=== PATIENT | female | born 1950 | race Caucasian/White ===

== ENCOUNTER 2017-10-28 10:32 | Emergency (ER) | payer BC, MEDICARE ==
[2017-10-28 10:47] VITALS: BP 139/72
--- NOTE | 2017-10-28 11:56 | UC ---
Throat Pain/Nasal Kostas HPI - HPI Summary HPI Summary: 67-year-old female presents with 3 day history of nasal congestion, yellow nasal drainage, maxillary sinus pressure, bilateral ear fullness and pain, sore throat, and a nonproductive cough. She does have history of sick contact with a friend with similar symptoms. Denies fever, chest pain, shortness of breath, abdominal pain, nausea, or vomiting. - History of Current Complaint Chief Complaint: UCGeneralIllness Stated Complaint: SORE THROAT Time Seen by Provider: 10/28/17 11:33 Hx Obtained From: Patient Onset/Duration: Gradual Onset, Lasting Days - 3 Severity: Mild Pain Intensity: 4 Cough: Nonproductive Associated Signs & Symptoms: Positive: Sinus Discomfort, Nasal Discharge. Negative: Dysphagia, Hoarseness, Fever, Vomiting, Rash - Allergies/Home Medications Allergies/Adverse Reactions: Allergies Allergy/AdvReac Type Severity Reaction Status Date / Time No Known Allergies Allergy Verified 10/28/17 10:37 Home Medications: Home Medications Ibuprofen TAB* [Motrin TAB* 400 MG] 400 mg PO Q6H PRN 10/28/17 [History Confirmed 10/28/17] Loratadine [Allergy Relief] 10 mg PO DAILY 10/28/17 [History Confirmed 10/28/17] Multivitamin [Multivitamins] 1 cap PO DAILY 10/28/17 [History Confirmed 10/28/17 ] PMH/Surg Hx/FS Hx/Imm Hx Previously Healthy: Yes - Denies significant PMH - Surgical History Surgical History: Yes Surgery Procedure, Year, and Place: oopherectomy 2008. partial L lobectomy 2008. L breast lumpectomy 2011. benign tumor removed 1970 - Family History Family History: Noncontributory - Social History Occupation: Retired Lives: With Family Alcohol Use: Occasionally Substance Use Type: None Smoking Status (MU): Never Smoked Tobacco Review of Systems Constitutional: Negative Skin: Negative Eyes: Negative ENT: Sore Throat, Ear Ache, Nasal Discharge, Sinus Congestion, Sinus Pain/ Tenderness Respiratory: Cough Cardiovascular: Negative Gastrointestinal: Negative Is Patient Immunocompromised?: No All Other Systems Reviewed And Are Negative: Yes Physical Exam Triage Information Reviewed: Yes Appearance: No Pain Distress, Well-Nourished Vital Signs: Initial Vital Signs Temp 98.2 F 10/28/17 10:40 Pulse 72 10/28/17 10:40 Resp 18 10/28/17 10:40 BP 139/72 10/28/17 10:40 Pulse Ox 100 10/28/17 10:40 Vital Signs Reviewed: Yes Eyes: Positive: Conjunctiva Clear. Negative: Discharge ENT: Positive: Pharyngeal erythema - Mild with post-nasal drip, Nasal congestion , Nasal drainage - Yellow, TM dull - Left, TM red - Left with effusion, Sinus tenderness - Maxillary, Uvula midline. Negative: Tonsillar swelling, Tonsillar exudate Neck: Positive: Supple, Nontender, Enlarged Nodes @ - single right anterior cervical Respiratory: Positive: Lungs clear, Normal breath sounds, No respiratory distress Cardiovascular: Positive: RRR, No Murmur Neurological: Positive: Alert Skin Exam: Normal Diagnostics - Laboratory Diagnostic Studies Completed/Ordered: Rapid strep negative Throat Pain/Nasal Course/Dx - Course Course Of Treatment: 67-year-old female with 3 day history of nasal congestion, yellow nasal drainage, maxillary sinus pressure, bilateral ear fullness and pain , sore throat, and a nonproductive cough. Exam revealed nasal congestion with maxillary sinus tenderness, erythematous pharynx with anterior cervical lymphadenopathy, and a erythematous dull left TM. Will treat with Augmentin 875 mg BID x 10 days for acute maxillary sinusitis and a left otitis media, fluticasone nasal spray, and saline rinses. She was provided with the [facility] physician referral number for assistance with establishing with PCP. - Differential Dx/Diagnosis Differential Diagnosis/HQI/PQRI: Otitis Media, Pharyngitis, Sinusitis Provider Diagnoses: Acute maxillary sinusitis, Left otitis media Discharge - Sign-Out/Discharge Documenting (check all that apply): Patient Departure All imaging exams completed and their final reports reviewed: No Studies - Discharge Plan Condition: Stable Disposition: HOME Prescriptions: Amoxicillin/Clavulanate TAB* [Augmentin TAB 875*] 875 mg PO BID #20 tab Fluticasone NASAL SPRAY 50MCG* [Flonase NASAL SPRAY 50MCG*] 2 spray BOTH NARES DAILY #1 btl Patient Education Materials: Sinusitis (ED), Ear Infection (ED) Referrals: No Primary Care Phys,NOPCP [Primary Care Provider] - [facility] PHYSICIAN REFERRAL [Outside] Additional Instructions: Start Augmentin 1 tablet every 12 hours for 10 days. Be sure to complete the entire prescription even if you're feeling better. Use a saline rinse such as Netti pot or NeilMed twice daily to help thin secretions and promote drainage. Use fluticasone (Flonase) 2 sprays each nostril once daily. Continue using acetaminophen (Tylenol) or ibuprofen (Advil, Motrin) as needed for pain. Use salt water rinses several times a day to help with the sore throat. Your blood pressure in the clinic today was mildly elevated. It is recommended that you establish with a primary care provider to have this rechecked. I have provided you with the number for the [facility] to help you arrange for follow up. - Billing Disposition and Condition Condition: STABLE Disposition: Home - Attestation Statements Provider Attestation: I was available for consult. This patient was seen by the [facility]. The patient was not presented to, seen by, or examined by me. -Perri
== END 2017-10-28 12:05 | disposition home or self-care (01) ==
LOC: UCEAST 10:32
DX: J01.00 Acute maxillary sinusitis, unspecified (principal); H66.92 Otitis media, unspecified, left ear
CPT/HCPCS: 87651; 99202; G0463

== ENCOUNTER 2017-12-27 11:39 | Emergency (ER) | payer MEDICARE, BC ==
--- NOTE | 2017-12-27 11:55 | ED ---
Abdominal Pain/Female - HPI Summary HPI Summary: The pt is a 67 y/o female presenting [place] [facility] c/o gradual onset LLQ abdominal pain since two days ago worsened today morning after breakfast. The sharp waxing and waning pain is rated 6/10 in severity. She notes nausea and vomiting but denies CP, dizziness, and dysuria. She called her PCP and is waiting for the return call. 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 Home Medications Medication Instructions Recorded Confirmed Type Amoxicillin/Clavulanate TAB* 875 mg PO BID #20 tab 10/28/17 Rx [Augmentin TAB 875*] Fluticasone NASAL SPRAY 50MCG* 2 spray BOTH NARES DAILY #1 btl 10/28/17 Rx [Flonase NASAL SPRAY 50MCG*] Ibuprofen TAB* [Motrin TAB* 400 MG] 400 mg PO Q6H PRN 10/28/17 10/28/17 History Loratadine [Allergy Relief] 10 mg PO DAILY 10/28/17 10/28/17 History Multivitamin [Multivitamins] 1 cap PO DAILY 10/28/17 10/28/17 History - History of Current Complaint Chief Complaint: EDAbdPain Stated Complaint: ABD PAIN Time Seen by Provider: 12/27/17 11:45 Hx Obtained From: Patient Hx Last Menstrual Period: Menopause Onset/Duration: Gradual Onset, Lasting Days - 2 days, Still Present, Worse Since - Today morning Timing: Intermittent Episode Lasting Severity Currently: Moderate Pain Intensity: 7 Pain Scale Used: 0-10 Numeric Location: Discrete At: LLQ Aggravating Factor(s): Nothing Alleviating Factor(s): Nothing Associated Signs and Symptoms: Positive: Nausea, Vomiting Allergies/Adverse Reactions: Allergies Allergy/AdvReac Type Severity Reaction Status Date / Time No Known Allergies Allergy Verified 10/28/17 10:37 PMH/Surg Hx/FS Hx/Imm Hx Previously Healthy: No Endocrine/Hematology History: Denies: Hx Diabetes Cardiovascular History: Denies: Hx Hypertension Respiratory History: Denies: Hx Asthma - Cancer History Cancer Type, Location and Year: None - Surgical History Surgery Procedure, Year, and Place: oopherectomy 2008. partial L lobectomy 2008. L breast lumpectomy 2011. benign tumor removed 1970 Infectious Disease History: No Infectious Disease History: Denies: Traveled Outside the [place] in Last 30 Days - Family History Family History: Noncontributory - Social History Occupation: Retired Lives: With Family Alcohol Use: Occasionally Substance Use Type: Reports: None Smoking Status (MU): Never Smoked Tobacco Review of Systems Constitutional: Negative - Dizziness Negative: Chest Pain Positive: Abdominal Pain - LLQ , Vomiting, Nausea Negative: dysuria All Other Systems Reviewed And Are Negative: Yes Physical Exam - Summary Physical Exam Summary: Appearance: The patient is well-nourished in no acute respiratory distress and in no acute pain. Skin: The skin is warm and dry and skin color reflects adequate perfusion. HEENT: The head is normocephalic and atraumatic. The pupils are equal and reactive. The conjunctivae are clear and without drainage. Nares are patent and without drainage. Mouth reveals moist mucous membranes and the throat is without erythema and exudate. The external ears are intact. The ear canals are patent and without drainage. The tympanic membranes are intact. Neck: The neck is supple with full range of motion and non-tender. There are no carotid bruits. There is no neck vein distension. Respiratory: Chest is non-tender. Lungs are clear to auscultation and breath sounds are symmetrical and equal. Cardiovascular: Heart is regular rate and rhythm. There is no murmur or rub auscultated. There is no peripheral edema and pulses are symmetrical and equal. Abdomen: The abdomen is soft and mildly tender in the LLQ. Left CVA tenderness noted. There are normal bowel sounds heard in all four quadrants and there is no organomegaly palpated. Musculoskeletal: There is no back tenderness noted. Extremities are non-tender with full range of motion. There is good capillary refill. There is no peripheral edema or calf tenderness elicited. Neurological: Patient is alert and oriented to person, place and time. The patient has symmetrical motor strength in all four extremities. Cranial nerves are grossly intact. Deep tendon reflexes are symmetrical and equal in all four extremities. Psychiatric: The patient has an appropriate affect and does not exhibit any anxiety or depression. Triage Information Reviewed: Yes Vital Signs On Initial Exam: Initial Vitals Temp Pulse Resp BP Pulse Ox 96.8 F 69 18 149/74 100 12/27/17 11:42 12/27/17 11:42 12/27/17 11:42 12/27/17 11:42 12/27/17 11:42 Vital Signs Reviewed: Yes Diagnostics - Vital Signs Vital Signs Temp Pulse Resp BP Pulse Ox 12/27/17 11:42 96.8 F 69 18 149/74 100 - Laboratory Result Diagrams: 12/27/17 12:14 12/27/17 12:14 Lab Statement: Any lab studies that have been ordered have been reviewed, and results considered in the medical decision making process. - CT Abd/Pel CT CT Interpretation Completed By: Radiologist - IMPRESSION: #. Moderate LEFT hydroureteronephrosis is traced to a 7.6 mm cephalocaudal stone at the proximal LEFT ureter. Additional 5.5 mm stone within the ureter just proximal to the dominant stone. The ED physician reviewed this radiology report. Re-Evaluation - Re-Evaluation First Eval Re-Evaluation Time: 13:25 Change: Improved Abdominal Pain Fem Course/Dx - Course Course Of Treatment: Ms. Anglin presented with a couple of days of left flank pain. It has waxed and waned but has essentially been constantly present. At times is gotten severe and cause nausea but she has not vomited. She denies any change in her bowels or bladder. There is no exacerbating or relieving factors or associated symptoms otherwise. She was noted to be in a fair amount of distress here with good vital signs and nontoxic in appearance. She was given IV fluids as well as IV ketorolac, hydromorphone and Zofran. She got significant relief from her pain. She had no leukocytosis but did have a mild lactic acid elevation at 3.3. This was treated with fluids. CT showed a relatively large proximal left ureteral stone. In vertical dimension it was about 7 mm and horizontally about 5. Her urinalysis showed 1+ white blood cells 2+ blood no bacteria seen. This is an equivocal urine. We discussed her options. She has hydronephrosis from a proximal stone which is borderline in size for passing. She did quite well with pain medication here. There is no urology on-call and she would need to be transferred and she prefers to try this as an outpatient over the weekend. Because of the equivocal urine I am going to give her antibiotics to be on the safe side. She is aware of the risks and will return to the emergency department for any changes especially if fever. - Diagnoses Provider Diagnoses: Kidney stones - Provider Notifications Discussed Care Of Patient With: Rebecca Emerson Time Discussed With Above Provider: 11:41 Discharge - Sign-Out/Discharge Documenting (check all that apply): Patient Departure - DC - Discharge Plan Condition: Stable Disposition: HOME Prescriptions: Ciprofloxacin TAB* [Cipro Tab*] 500 mg PO BID #20 tab HYDROcodone/ACETAMIN 5-325 MG* [Aurora 5-325 TAB*] 1 tab PO Q6H PRN #20 tab MDD 4 PRN Reason: Pain Tamsulosin CAP* [Flomax CAP*] 0.4 mg PO DAILY #7 cap Patient Education Materials: Kidney Stones (ED) Referrals: Babs Parra MD [Primary Care Provider] - Meir Cutler MD [Medical Doctor] - Additional Instructions: Continue taking Ibuprofen as needed and follow up with the urologist on Friday12/29/2017. Return to the ED in case of any new or worsening of symptoms. - Billing Disposition and Condition Condition: STABLE Disposition: Home - Attestation Statements Document Initiated by Scribe: Yes Documenting Scribe: Rachel Broderick Provider For Whom Scribe is Documenting (Include Credential): Dr. Neo Hernandez MD Scribe Attestation: Rachel Coy , scribed for Dr. Neo Hernandez MD on 12/27/17 at 1829. Scribe Documentation Reviewed: Yes Provider Attestation: The documentation as recorded by the scribeRachel accurately reflects the service I personally performed and the decisions made by me, Dr. Neo Hernandez MD
[2017-12-27 12:28] LABS: ABS Basophils 0 10^3/ul (0-0.2); ABS Eosinophils 0.1 10^3/ul (0-0.6); ABS Lymphocytes 1.6 10^3/ul (1.0-4.8); ABS Monocytes 0.5 10^3/ul (0-0.8); ABS Nucleated RBC 0 10^3/ul; Eosinophil % 1.2 % (0-6); Hematocrit 40 % (35-47); Lymphocyte % 15.3 % (25-47); Mean Corpuscular HGB Conc 35 g/dl (31-36); Mean Corpuscular Hemoglobin 30 pg (27-31); Mean Corpuscular Volume 88 fL (80-97); Mean Platelet Volume 8.3 fL (7.4-10.4); Nucleated Red Blood Cells % 0.1; Platelet Count 233 10^3/ul (150-450); Red Blood Count 4.61 10^6/ul (4.00-5.40); Red Cell Distribution Width 14 % (10.5-15); White Blood Count 10.2 10^3/ul (3.5-10.8)
[2017-12-27] MEDS ORDERED: Metoclopramide IV* 5 MG/ML 2 ML VIAL IV ONE (12:35)
[2017-12-27] MEDS ORDERED: HYDROmorphone INJ* 2 MG/ML CARPUJECT SYRINGE IV SLOW PU ONE (12:35)
[2017-12-27] MEDS ORDERED: NS 0.9% 1000 ML* 1,000 ML IV ONE (12:35)
[2017-12-27] MEDS ORDERED: Ketorolac INJ* 30 MG/ML 1 ML VIAL IV PUSH ONE (12:35)
[2017-12-27] MEDS ORDERED: HYDROmorphone INJ1* 1 MG/ML SYRINGE IV ONE (12:45)
[2017-12-27 12:46] LABS: EGFR Non-African American 80.6 (>60)
[2017-12-27 14:09] LABS: Urine Appearance Cloudy; Urine Blood Negative (Negative); Urine Color Yellow; Urine Ketones Trace (Negative); Urine Protein 1+(30 mg/dL) (Negative); Urine Red Blood Cell 3+(>10/hpf) (Absent); Urine Specific Gravity 1.023 (1.010-1.030); Urine Urobilinogen Negative (Negative); Urine White Blood Cell 1+(6-10/hpf) (Absent)
[2017-12-27 15:10] VITALS: BP 119/62
== END 2017-12-27 15:10 | disposition home or self-care (01) ==
LOC: ED 11:39
DX: N20.0 Calculus of kidney (principal); N13.30 Unspecified hydronephrosis
CPT/HCPCS: 36415; 74176; 80053; 81003; 81015; 83605; 83690; 85025; 86140; 87086; 96361; 96374; 96375; 99283; J1170; J1885; J2765

== ENCOUNTER → 2017-12-29 13:40 | Day surgery (SDC) | payer MEDICARE, BC ==
[~2017-12-29 13:40] MED LIST: Acetaminophen TAB* 325 MG PO PRN; DiMENhydriNATE IV* 50 MG/ML VIAL IV PUSH PRN; Gentamicin ADULT (*) 160 MG in NS 0.9% 100 ML* 100 ML IVPB ONE; Iohexol 180 (CONTRAST) 10 ML SDV IV ONE; Ketorolac INJ* 30 MG/ML 1 ML VIAL IV PRN; LR IV SCH; Midazolam* 1 MG/ML 2 ML VIAL (2 MG) ONE; Naloxone* 0.4 MG/ML 1 ML VIAL IV PRN; Ondansetron INJ* 2 MG/ML VIAL IV PRN; cefTRIAXone(*) 2 GM in NS 0.9% 100 ML* 100 ML IVPB ONE; fentaNYL* 50 MCG/ML 2 ML VIAL (100 MCG VIAL) IV PRN; fentaNYL* 50 MCG/ML 2 ML VIAL (100 MCG VIAL) ONE; oxyCODONE/Acetamin 5/325 MG* TAB PO PRN
--- NOTE | 2017-12-29 14:09 | HP ---
CC: Dr. Babs Parra * ADMITTING HISTORY AND PHYSICAL: DATE OF ADMISSION: 12/29/17 ADMITTING DIAGNOSES: 1. Calculi, left proximal ureter (2 stones). 2. Left hydronephrosis. PLANNED PROCEDURE: Left stent insertion (probably to be followed in the near future by laser lithotripsy). SURGEON: Dr. Meeks. HISTORY OF PRESENT ILLNESS: Jahaira Anglin is a 67-year-old lady who had been evaluated in the emergency department on 12/27/17 because of a 2- to 3-day history of left flank pain and nausea and vomiting. She was noted to have a 7 mm and a 6 mm calculus, both in the left proximal ureter, with moderate left hydronephrosis and is now being brought in for urgent left stent insertion to be followed at some point in the near future by lithotripsy. PAST MEDICAL HISTORY: Significant for: 1. 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 2. Oophorectomy in 2008. 3. Left breast lumpectomy in 2011. MEDICATIONS ON ADMISSION: 1. Flonase nasal spray 2 sprays daily. 2. Ibuprofen p.r.n. 3. Loratadine 10 mg daily. 4. Currently, she is also on Cipro, which was started in the emergency department, 500 mg twice a day. ALLERGIES: No known drug allergies. REVIEW OF SYSTEMS: There is no history of diabetes mellitus or any other major systemic illness. She denies any chest pain or shortness of breath. PHYSICAL EXAMINATION GENERAL: Reveals a pleasant, middle-aged lady. VITAL SIGNS: Blood pressure is 150/70, pulse 70 per minute, respirations 18 per minute, oxygen saturation 100% on room air. LUNGS: Clear bilaterally. CARDIOVASCULAR: Regular rate and rhythm. S1, S2. ABDOMEN: Soft with left flank tenderness. DIAGNOSTIC STUDIES/LAB DATA: Review of labs reveals a white count of 10.2 and a platelet count of 233. BUN and creatinine are 25 and 0.72 respectively. A urine culture was done through the emergency department, which was negative. I reviewed the CT, which reveals moderate left hydronephrosis with 2 calculi in the left proximal ureter. PLAN: Plan is for left stent insertion to be followed at some point in the near future by lithotripsy. [id number]/[facility] #: [id number] [facility]
[2017-12-29 19:45] VITALS: BP 141/78
--- NOTE | 2017-12-30 16:33 | OP ---
CC: Dr. Babs Parra; Dr. Aaron Meeks OPERATIVE SUMMARY: DATE OF OPERATION: 12/29/17 DATE OF : 48 SURGEON: Aaron Meeks MD ANESTHESIOLOGIST: Dr. Cr. ANESTHESIA: Intravenous sedation. PRE-OP DIAGNOSES: 1. Left hydronephrosis. 2. Obstructing calculi, left proximal ureter. POST-OP DIAGNOSES: 1. Left hydronephrosis. 2. Obstructing calculi, left proximal ureter. OPERATIVE PROCEDURE: Cystoscopy, left retrograde pyelogram, left ureteral calculus manipulation, and left stent insertion. COMPLICATIONS: None. STENT USED: 7-[place] stent left ureter. INDICATIONS: Jahaira Anglin is a 67-year-old lady who had been in the emergency room a few days ago because of left flank pain, nausea, and vomiting secondary to obstructing calculi in the left proxima l ureter. She is being brought in for urgent left stent insertion to be followed at some point in e future by a shockwave lithotripsy or laser lithotripsy. OPERATIVE FINDINGS: Left hydronephrosis and proximal hydroureter secondary to calculi left proximal ureter. POSTOPERATIVE CONDITION: Stable. DESCRIPTION OF PROCEDURE: After induction of intravenous sedation, the patient was placed in dorsal lithotomy position. Sequential compression devices were in place and functioning. Initial cystoscop y revealed a normal-appearing bladder. A guidewire was introduced into the left ureter. Retrograde pyelogram revealed left hydronephrosis and proximal hydroureter. An open-ended catheter was introduc ed and advanced under fluoroscopic monitoring. The calculi could be visualized as filling defects in the area of proximal left ureter and they were carefully manipulated proximally. Once this was done , urine was noted to be draining freely from the left kidney. The open-ended catheter was withdrawn. A 7-[place] stent was introduced and positioned under fluoroscopy with good proximal and distal posi tioning obtained. The plan is to obtain a postoperative x-ray and then to bring her back at some poi nt either for shockwave lithotripsy or laser lithotripsy depending on the eventual location of the ca lculi. [id number]/[facility] #: [id number]
== END | disposition home or self-care (01) ==
LOC: OR 13:40
PROVIDERS: ATTEND Urology
DX: N13.2 Hydronephrosis with renal and ureteral calculous obstruction (principal)
CPT/HCPCS: 74018; 74420; C1876; J0696; J1580; J2250; J3010

== ENCOUNTER 2018-01-26 12:50 | Day surgery (SDC) | payer MEDICARE, BC ==
[~2018-01-26 12:50] MED LIST changes: -Acetaminophen TAB* 325 MG PO PRN; +Buffered Lidocaine 0.9% SYRIN* 5 ML/SYR SYRINGE INTRADERM ONE; -DiMENhydriNATE IV* 50 MG/ML VIAL IV PUSH PRN; -Gentamicin ADULT (*) 160 MG in NS 0.9% 100 ML* 100 ML IVPB ONE; -Iohexol 180 (CONTRAST) 10 ML SDV IV ONE; -Ketorolac INJ* 30 MG/ML 1 ML VIAL IV PRN; -LR IV SCH; +Lactated Ringers 1000 ML Bag* 1,000 ML IV SCH; -Midazolam* 1 MG/ML 2 ML VIAL (2 MG) ONE; -Naloxone* 0.4 MG/ML 1 ML VIAL IV PRN; -Ondansetron INJ* 2 MG/ML VIAL IV PRN; +Sodium Citrate/Citric Acid* 15 ML UDC PO ONE; -cefTRIAXone(*) 2 GM in NS 0.9% 100 ML* 100 ML IVPB ONE; -fentaNYL* 50 MCG/ML 2 ML VIAL (100 MCG VIAL) IV PRN; -fentaNYL* 50 MCG/ML 2 ML VIAL (100 MCG VIAL) ONE; -oxyCODONE/Acetamin 5/325 MG* TAB PO PRN
[2018-01-26] MEDS ORDERED: Sodium Citrate/Citric Acid* 15 ML UDC ONE (14:05)
[2018-01-26] MEDS ORDERED: cefTRIAXone(*) 2 GM ADDV.VIAL IVPB ONE ×2 (14:06→14:16)
[2018-01-26] MEDS ORDERED: Propofol* 10 MG/ML 20 ML BTL ONE (15:23)
[2018-01-26] MEDS ORDERED: Lidocaine 2% PF * 5 ML VIAL ONE (15:24)
[2018-01-26] MEDS ORDERED: Furosemide IV* 10 MG/ML 2 ML VIAL (20 MG) ONE (15:37)
[2018-01-26 16:35] VITALS: BP 138/77
--- NOTE | 2018-01-26 23:41 | OP ---
CC: Dr. Babs Parra * DATE OF OPERATION: 01/26/18 - [facility] DATE OF : 48 SURGEON: Aaron Meeks MD ANESTHESIOLOGIST: Dr. Montanez. ANESTHESIA: General. PRE-OP DIAGNOSIS: Left renal calculi. POST-OP DIAGNOSIS: Left renal calculi. OPERATIVE PROCEDURE: Shockwave lithotripsy of left renal calculi. INDICATIONS: Jahaira Anglin is a 67-year-old lady who had undergone urgent left stent insertion because of obstructing calculi in the proximal left ureter. She is now being brought in for lithotripsy. COMPLICATIONS: None. POSTOPERATIVE CONDITION: Stable. DESCRIPTION OF PROCEDURE: After induction of general anesthesia, the patient was placed on the lithotripsy table in supine position. There were 2 calculi noted in the midpole area of the left kidney adjacent to the proximal loop of the stent. Using fluoroscopy, these were identified and shockwave lithotripsy was commenced at a rate of 60 shocks per minute. After the initial 300 shocks, there was a pause in lithotripsy for several minutes in an effort to minimize any potential trauma to the kidney. Lithotripsy was then resumed and periodic imaging revealed good localization and fragmentation and a total of 1600 shocks were administered. The patient tolerated the procedure satisfactorily and was transferred back to the recovery area in stable condition. [id number]/[facility] #: [id number] JOSÉ LUIS
== END 2018-01-26 17:05 | disposition home or self-care (01) ==
LOC: OR 12:50
PROVIDERS: ATTEND Urology
DX: N20.0 Calculus of kidney (principal); Z85.118 Personal history of other malignant neoplasm of bronchus and lung
CPT/HCPCS: 74018; A9270-GY; J0696; J1940; J2704